=== PATIENT | female | born 1970 | race Caucasian/White ===

== ENCOUNTER 2020-02-23 14:01 | Emergency (ER) | payer BC ==
[~2020-02-23] VITALS: Ht 165.1 cm; Wt 79.5 kg
[2020-02-23 14:10] VITALS: BP 119/68
[2020-02-23] MEDS ORDERED: LIDOCAINE 1% Multi-Dose 20 ML VIAL. INJ ONE (14:15)
[2020-02-23] MEDS ORDERED: HYDROcodone/APAP 5/325MG 1 TAB TABLET PO ONE (14:15)
--- NOTE | 2020-02-23 14:24 | PHYS DOC ---
Past Medical History Past Medical History: UTI Past Surgical History: No Surgical History Smoking Status: Never Smoker Alcohol Use: None Drug Use: None General Adult EDM: Chief Complaint: HAND PROBLEM HPI: HPI: Patient is a 49 year old female who presents with was using a power line lineman this afternoon on her deck when she states she got her right hand in the way of the power line lineman causing a 1cm laceration to the inner 5th finger at the PIP joint. Her finger has 2+ swelling and some bruising of which patient can not bend do to pain and swelling. Patient rates her pain a 8/10. Review of Systems: Review of Systems: Musculoskeletal: Denies back pain. 5th finger right joint pain. [] Integument: Denies rash. Right 5th finger laceration. [] Heart Score: Risk Factors: Risk Factors: DM, Current or recent (<one month) smoker, HTN, HLP, family history of CAD, obesity. Risk Scores: Score 0 - 3: 2.5% MACE over next 6 weeks - Discharge Home Score 4 - 6: 20.3% MACE over next 6 weeks - Admit for Clinical Observation Score 7 - 10: 72.7% MACE over next 6 weeks - Early Invasive Strategies Allergies: Allergies: Allergies Coded Allergies Type Severity Reaction Last Updated Verified clindamycin Allergy Intermediate Nausea and Vomiting 03/31/15 Yes sulfamethoxazole Allergy Intermediate Nausea 03/31/15 Yes trimethoprim Allergy Intermediate Nausea 03/31/15 Yes Physical Exam: PE: Constitutional: Well developed, well nourished, no acute distress, non-toxic appearance. [] HENT: Normocephalic, atraumatic, bilateral external ears normal, oropharynx moist, no oral exudates, nose normal. [] Eyes: PERRLA, EOMI, conjunctiva normal, no discharge. [] Neck: Normal range of motion, no tenderness, supple, no stridor. [] Cardiovascular:Heart rate regular rhythm, no murmur [] Lungs & Thorax: Bilateral breath sounds clear to auscultation [] Abdomen: Bowel sounds normal, soft, no tenderness, no masses, no pulsatile masses. [] Skin: Warm, dry, no erythema, no rash. 5th finger right hand bruising and swelling 2+. Inner 5th finger laceration. [] Back: No tenderness, no CVA tenderness. [] Extremities: No tenderness, no cyanosis, no clubbing, ROM intact, no edema. [] Neurologic: Alert and oriented X 3, normal motor function, normal sensory function, no focal deficits noted. [] Psychologic: Affect normal, judgement normal, mood normal. [] EKG: EKG: [] Radiology/Procedures: Radiology/Procedures: [] Impression: [facility] [address] [place] [address] IMAGING REPORT Signed PATIENT: FRANC VENCES ACCOUNT: [id number] : 1970 LOCATION: ER AGE: 49 SEX: F EXAM STATUS: PRE ER ORD. PHYSICIAN: SOHA STOKES APRN REASON: 5th finger swollen, laceration PROCEDURE: HAND RIGHT 3V Examination: HAND RIGHT 3V History: Laceration, first finger swelling Comparison/Correlation: None Findings: Total of 3 images of the right hand were obtained by portable technique. Evaluation of the wrist and carpometacarpal joints overall may be limited due to inability to optimally position the patient is resolved. Significant soft tissue gas involvement of the fifth digit from the metacarpal phalangeal joint level to the distal phalangeal tuft noted. Soft tissue gas is noted to extend laterally about the fourth metacarpophalangeal joint as well. No acute fracture or bone destruction. No significant degenerative change for the patient's age. Impression: Soft tissue gas is evident in this patient with reported laceration injury. Considering the distribution of the gas, infectious process including necrotizing fasciitis is of concern. Electronically signed by: Charles Izquierdo MD (02/23/2020 2:34 PM) [id number] DICTATED and SIGNED BY: CHARLES IZQUIERDO MD DATE: 02/23/20 1434 Course & Med Decision Making: Course & Med Decision Making Pertinent Labs and Imaging studies reviewed. (See chart for details) Alert and oriented. Right 5th finger is 2+ swollen and whole finger is tender to palpation. No deformity seen. No joint laxity. Cap refill < 3 seconds. Denies numbness or tingling. Radial pulse strong and present. 1cm laceration to inner right 5th finger at PIP joint with no involvement of ligament, joint, muscle, or bone and none of which can be seen with exploration. No foreign bodies seen with exploration and copious irrigation with saline and chlorhexidine. No injury to nail or nail bed. Impression: Soft tissue gas is evident in this patient with reported laceration injury. Considering the distribution of the gas, infectious process including necrotizing fasciitis is of concern. I did digitally block the right 5th digit due to pain. I cleaned the laceration with saline and chlorhexidine. IV is started and Zosyn. I have Spoken to Dr Rausch hand surgeon at and he stated that since it is a power line lineman with water that she is ok to go home. States to leave laceration open to drain and put her on PO antibiotics and stated she does not need to stay home. I also Sent the Xray to . I have spoken to [facility] plastics Dr Hall who stated the same thing as the doctor and stated to have her come to see him in 2 days at the clinic. He also states that this is not a emergency and does not need transfer. [] Dragon Disclaimer: Dragsimon Disclaimer: This electronic medical record was generated, in whole or in part, using a voice recognition dictation system. Departure Departure Impression: Primary Impression: Laceration Disposition: HOME, SELF-CARE Condition: STABLE Referrals: UNKNOWN PCP NAME (PCP) Patient Instructions: Laceration Care, Adult Additional Instructions: Follow up with Dr Hall at [facility] in 2 days. Call [phone]. Call them tomorrow morning. The doctor took your name down so they will be expecting you. Take medication as prescribed. Scripts Ciprofloxacin Hcl (CIPRO) 500 Mg Tablet 1 TAB PO BID for 7 Days, #14 TAB 0 Refills Prov: SOHA STOKES CLINICAL LAB SCIENTIST 02/23/20 Cephalexin (KEFLEX) 500 Mg Capsule 1 CAP PO BID for 7 Days, #14 CAP 0 Refills Prov: SOHA STOKES CLINICAL LAB SCIENTIST 20 Hydrocodone/Apap 5-325 (NORCO 5-325 TABLET) 1 Each Tablet 1 TAB PO PRN Q6HRS PRN for PAIN, #10 TAB 0 Refills Prov: SOHA STOKES CLINICAL LAB SCIENTIST 02/23/20 SOHA STOKES CLINICAL LAB SCIENTIST Feb 23, 2020 14:24
--- NOTE | 2020-02-23 14:37 | RAD ---
Examination: HAND RIGHT 3V History: Laceration, first finger swelling Comparison/Correlation: None Findings: Total of 3 images of the right hand were obtained by portable technique. Evaluation of the wrist and carpometacarpal joints overall may be limited due to inability to optimally position the patient is resolved. Significant soft tissue gas involvement of the fifth digit from the metacarpal phalangeal joint level to the distal phalangeal tuft noted. Soft tissue gas is noted to extend laterally about the fourth metacarpophalangeal joint as well. No acute fracture or bone destruction. No significant degenerative change for the patient's age. Impression: Soft tissue gas is evident in this patient with reported laceration injury. Considering the distribution of the gas, infectious process including necrotizing fasciitis is of concern. Electronically signed by: Charles Prather MD (02/23/2020 2:34 PM) [id number]
[2020-02-23] MEDS ORDERED: PIPERACILLIN/TAZOBACTAM 3.375 GM in IV NORMAL SALINE 50ML 50 ML IV ONE (15:00)
[2020-02-23 15:09] LABS: BASO # 0.1 x10^3/uL (0.0-0.2); BASO % 2 % (0-3); EOS # 0.5 x10^3/uL (0.0-0.7); EOS % 6 % (0-3); HEMATOCRIT 38.1 % (36.0-47.0); HEMOGLOBIN 13.2 g/dL (12.0-15.5); LYMPH # 1.8 x10^3/uL (1.0-4.8); LYMPH % 21 % (24-48); MEAN CORPUSCULAR HEMOGLOBIN 31 pg (25-35); MEAN CORPUSCULAR HGB CONC 35 g/dL (31-37); MEAN CORPUSCULAR VOLUME 90 fL (79-100); MONO # 0.6 x10^3/uL (0.0-1.1); MONO % 7 % (0-9); NEUT # 5.7 x10^3/uL (1.8-7.7); NEUT % 65 % (31-73); PLATELET COUNT 235 x10^3/uL (140-400); RED BLOOD COUNT 4.25 x10^6/uL (3.50-5.40); RED CELL DISTRIBUTION WIDTH 12.7 % (11.5-14.5); WHITE BLOOD COUNT 8.7 x10^3/uL (4.0-11.0)
[2020-02-23 15:17] LABS: CALCIUM 9.7 mg/dL (8.5-10.1); CREATININE 0.8 mg/dL (0.6-1.0); GFR 75.6; POTASSIUM 3.7 mmol/L (3.5-5.1)
[2020-02-23 15:22] LABS: ALBUMIN 4.2 g/dL (3.4-5.0); ALBUMIN/GLOBULIN RATIO 1.7 (1.0-1.7); TOTAL BILIRUBIN 0.5 mg/dL (0.2-1.0); TOTAL PROTEIN 6.7 g/dL (6.4-8.2)
[2020-02-23] MEDS ORDERED: CEPH-264 PO (16:09)
[2020-02-23] MEDS ORDERED: CIPR500T94 PO (16:09)
[2020-02-23] MEDS ORDERED: HYDR-3164 PO (16:09)
== END 2020-02-23 16:25 | disposition home or self-care (01) ==
LOC: ER 14:01
DX: S61.216A Laceration without foreign body of right little finger without damage to nail, initial encounter (principal); R60.0 Localized edema; Z88.1 Allergy status to other antibiotic agents; Z88.2 Allergy status to sulfonamides; Z88.6 Allergy status to analgesic agent; Y29.XXXA Contact with blunt object, undetermined intent, initial encounter; Y93.89 Activity, other specified; Y92.89 Other specified places as the place of occurrence of the external cause; Y99.8 Other external cause status
CPT/HCPCS: 36415; 64450; 73130; 80053; 85025; 96365; 99284; J2543; J3490